=== PATIENT | female | born 1945 | race Caucasian/White ===

== ENCOUNTER 2016-10-02 06:37 | Emergency (ER) | payer MEDICARE, MEDICAID ==
[2016-10-02 06:44] VITALS: O2SAT 100
[2016-10-02] MEDS ORDERED: DiphenhydrAMINE 50 mg/ml Inj IVP STA (07:40)
[2016-10-02] MEDS ORDERED: Sodium Chloride 0.9% 1,000 ML IV STA (07:40)
--- NOTE | 2016-10-02 08:04 | ED PDOC ---
HPI: Skin/Bite Injury Time Seen by Provider: 10/02/16 07:23 Chief Complaint (Nursing): Abnormal Skin Integrity History Per: Patient History/Exam Limitations: no limitations Onset/Duration Of Symptoms: Days (x2 days) Current Symptoms Are (Timing): Still Present Additional Complaint(s): 71 y/o female presents to the emergency department with a complaint of an itchy red rash involving the face, arms, chest, torsol, back and legs of an unknown allergen x2 days. Denies shortness of breath, tightness of the throat. PMD: Dr. 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 - Family History Family History: States: Unknown Family Hx - Social History Current smoker - smoking cessation education provided: No Ex-Smoker (has not smoked in the last 12 months): No Alcohol: None Drugs: Denies - Home Medications Home Medications: Ambulatory Orders Medication Instructions Recorded Ascorbic Acid [Vitamin C] 500 mg PO DAILY 10/02/16 Aspirin [Ecotrin] 81 mg PO DAILY 10/02/16 Cetirizine HCl [Zyrtec] 10 mg PO DAILY #10 capsule 10/02/16 DiphenhydrAMINE [Benadryl] 25 mg PO Q6H PRN 10/02/16 Famotidine [Pepcid] 20 mg PO Q12 #20 tab 10/02/16 Hydrocortisone 0.5% [Cortizone 1 appl TOP PRN PRN 10/02/16 0.5%] Lactobacillus Rhamnosus GG 1 tab PO DAILY 10/02/16 [[facility]] Metoprolol Tartrate [Lopressor] 3 tab PO Q12H 10/02/16 Temazepam [Restoril] 15 mg PO HS 10/02/16 Valsartan [Diovan] 40 mg PO DAILY 10/02/16 predniSONE [predniSONE Tab] 10 mg PO TID #15 tab 10/02/16 - Allergies Allergies/Adverse Reactions: Allergies Allergy/AdvReac Type Severity Reaction Status Date / Time iodine Allergy RASH Verified 10/02/16 06:41 Review of Systems ROS Statement: Except As Marked, All Systems Reviewed And Found Negative ENT: Negative for: Other (Tightness of the throat) Respiratory: Negative for: Shortness of Breath Skin: Positive for: Rash (Itchy red rash involving face, arms, chest, torsol, back and legs) Physical Exam - Reviewed Nursing Documentation Reviewed: Yes Vital Signs Reviewed: Yes - Physical Exam Appears: Positive for: Well, Non-toxic, No Acute Distress Head Exam: Positive for: ATRAUMATIC, NORMOCEPHALIC Skin: Positive for: Warm, Dry, Rash (erythematous flat rash involving face, chest, back, arms and legs ) ENT: Positive for: Normal ENT Inspection. Negative for: Pharyngeal Erythema Neck: Positive for: Normal, Supple Cardiovascular/Chest: Positive for: Regular Rate, Rhythm. Negative for: Murmur Respiratory: Positive for: Normal Breath Sounds. Negative for: Accessory Muscle Use, Wheezing, Respiratory Distress Gastrointestinal/Abdominal: Positive for: Normal Exam, Soft, Other (fistula drainage scant serum fluid noted). Negative for: Tenderness Extremity: Positive for: Normal ROM. Negative for: Pedal Edema Neurologic/Psych: Positive for: Alert, Oriented - Laboratory Results Result Diagrams: 10/02/16 07:45 10/02/16 11:35 - ECG O2 Sat by Pulse Oximetry: 100 (RA) Pulse Ox Interpretation: Normal Medical Decision Making Medical Decision Making: Time: 7:23 Initial plan: --VBG Shock Panel --COMP Metabolic Panel --ED urine Dipstick (POC) Stat --CBC w/ differential --Benadryl 25 mg IVP --Pepcid 20 mg IVP --Methylprednisolone 125 mg IVP --Sodium chloride 1,000 mls IV 100 mls/hr --Blood Culture Stat --Revaluation Scribe Attestation: Documented by Grace Lopez, acting as a scribe for Andrae Sherman MD. Provider Scribe Attestation: All medical record entries made by the Scribe were at my direction and personally dictated by me. I have reviewed the chart and agree that the record accurately reflects my personal performance of the history, physical exam, medical decision making, and the department course for this patient. I have also personally directed, reviewed, and agree with the discharge instructions and disposition. Disposition - Clinical Impression Clinical Impression: Allergic reaction - Patient ED Disposition Is Patient to be Admitted: No Counseled Patient/Family Regarding: Studies Performed, Diagnosis, Need For Followup, Rx Given - Disposition Referrals: Johnny Hansen MD [Family Provider] - Disposition: Routine/Home Disposition Time: 13:30 Condition: FAIR Prescriptions: Cetirizine HCl [Zyrtec] 10 mg PO DAILY #10 capsule Famotidine [Pepcid] 20 mg PO Q12 #20 tab predniSONE [predniSONE Tab] 10 mg PO TID #15 tab Instructions: General Allergic Reaction (ED)
[2016-10-02 08:30] LABS: VENOUS BLOOD GAS BASE EXCESS -1.7 mmol/L (0.0-2.0); VENOUS BLOOD GAS PCO2 38 mmHg (40-60); VENOUS BLOOD PH 7.39 (7.32-7.43)
[2016-10-02 08:42] LABS: BASO % 0.2 % (0.0-2.0); EOS # 0.1 K/uL (0.0-0.7); EOS % 0.9 % (0.0-4.0); HEMATOCRIT 34.8 % (34.0-47.0); LYMPH # 2.3 K/uL (1.0-4.3); LYMPH % 18.8 % (20.0-40.0); MEAN CELL VOLUME 80.4 fl (81.0-99.0); MEAN CORPUSCULAR HEMOGLOBIN 26.5 pg (27.0-31.0); MEAN CORPUSCULAR HGB CONC 32.9 g/dL (33.0-37.0); MEAN PLATELET VOLUME 8.4 fl (7.2-11.7); MONO # 0.5 K/uL (0.0-0.8); MONO % 3.9 % (0.0-10.0); NEUT # 9.3 K/uL (1.8-7.0); NEUT % 76.2 % (50.0-75.0); NRBC % 0.1 % (0.0-0.0); RED CELL DISTRIBUTION WIDTH 14.6 % (11.5-14.5); WHITE BLOOD COUNT 12.2 K/uL (4.8-10.8)
[2016-10-02 08:48] LABS: ALB/GLOB RATIO 0.7 (1.0-2.1); BILIRUBIN,TOTAL 1.5 mg/dl (0.2-1.3); CALCIUM 9.1 mg/dL (8.4-10.2); TOTAL PROTEIN 8.6 G/DL (6.3-8.2)
[2016-10-02 09:04] LABS: POTASSIUM 6.4 MMOL/L (3.6-5.0)
[2016-10-02 11:46] LABS: VENOUS BLOOD GAS BASE EXCESS -3.5 mmol/L (0.0-2.0); VENOUS BLOOD GAS PCO2 41 mmHg (40-60); VENOUS BLOOD PH 7.34 (7.32-7.43)
[2016-10-02 12:10] LABS: POTASSIUM 4.9 MMOL/L (3.6-5.0)
[2016-10-02 12:13] LABS: CALCIUM 8.4 mg/dL (8.4-10.2)
--- NOTE | 2016-10-02 12:55 | CT ---
PROCEDURE: CT Abdomen and Pelvis without intravenous contrast HISTORY: r/o kidney stone COMPARISON: None. TECHNIQUE: Technique. Contrast Dose: Radiation dose: Total exam DLP = 779 mGy-cm. This CT exam was performed using one or more of the following dose reduction techniques: Automated exposure control, adjustment of the mA and/or kV according to patient size, and/or use of iterative reconstruction technique. FINDINGS: LOWER THORAX: Unremarkable. LIVER: Unremarkable. No gross lesion or ductal dilatation. GALLBLADDER AND BILE DUCTS: Cholecystectomy. PANCREAS: Unremarkable. No gross lesion or ductal dilatation. SPLEEN: Unremarkable. ADRENALS: Unremarkable. No mass. KIDNEYS AND URETERS: Unremarkable. No hydronephrosis. No solid mass. VASCULATURE: Unremarkable. No aortic aneurysm. BOWEL: Postsurgical changes along the anterior abdominal wall with evidence of previous bowel resection. No evidence of bowel obstruction. APPENDIX: Unremarkable. Normal appendix. PERITONEUM: Unremarkable. No free fluid. No free air. LYMPH NODES: Unremarkable. No enlarged lymph nodes. BLADDER: Unremarkable. REPRODUCTIVE: Unremarkable. BONES: No acute fracture. OTHER FINDINGS: None. IMPRESSION: Status post prior cholecystectomy and laparotomy with evidence of previous bowel resection. No evidence of bowel obstruction, phlegmon abscess. No evidence of urinary tract calculus or hydronephrosis.
[2016-10-02 13:59] VITALS: BP 132/76; PULSE 101; RESP 19; TEMP 98.5
== END 2016-10-02 14:00 | disposition home or self-care (01) ==
LOC: H.ER 06:37
DX: T78.40XA Allergy, unspecified, initial encounter (principal); I10 Essential (primary) hypertension; Z79.82 Long term (current) use of aspirin; Z87.891 Personal history of nicotine dependence; Z90.49 Acquired absence of other specified parts of digestive tract
CPT/HCPCS: 74176; 80048; 80053; 82803; 85025; 87040; 96374; 96375; 99282; J1200; J2930; J7040

== ENCOUNTER 2017-05-08 09:36 | Day surgery (SDC) | payer MEDICARE, MEDICAID ==
[2017-05-03 10:41] VITALS: BMI 35.0
[2017-05-08] MEDS ORDERED: Tetracaine 0.5% Ophth 2 ML BOTTLE ONE (10:16)
[2017-05-08] MEDS ORDERED: Acetylcholine 1% Opth System Pack IO ONE ×2 (10:16→14:15)
[2017-05-08] MEDS ORDERED: Maxitrol Opht Susp ONE (10:16)
[2017-05-08] MEDS ORDERED: Lidocaine 1% 20 MG/2 ML PF AMP ONE (10:17)
[2017-05-08] MEDS ORDERED: Pilocarpine 1% Opht Soln ONE (10:17)
[2017-05-08] MEDS ORDERED: CA CL/K CL/NA CL 500 ML IR ONE (10:17)
[2017-05-08] MEDS ORDERED: EPINEPHrine 1 mg/ml (1:1000) Inj ONE (10:17)
[2017-05-08] MEDS ORDERED: Povidone Iodine 5% Opht SOLUTION ONE (10:18)
[2017-05-08] MEDS ORDERED: BSS 15 ML 45 ML IR ONE (10:18)
[2017-05-08] MEDS ORDERED: Chondroitin/Hyaluronate Opth Syringe KIT (0.55 ml-0.5 ml) IO ONE ×2 (10:18→14:15)
[2017-05-08] MEDS ORDERED: Phenylephrine 2.5% Opht Soln OD ONE (10:55)
[2017-05-08] MEDS ORDERED: Flurbiprofen 0.3% Opht SOLN OD SCH (11:00)
[2017-05-08] MEDS ORDERED: Tropicamide 1% Opht 150 DROP/15 ML OD SCH (11:00)
[2017-05-08] MEDS ORDERED: Flurbiprofen 0.3% Opht SOLN OU ONE (11:43)
[2017-05-08] MEDS ORDERED: Tropicamide 1% Opht 150 DROP/15 ML OD ONE (11:43)
[2017-05-08] MEDS ORDERED: Lactated Ringer's 1,000 ML IV ONE (14:00)
[2017-05-08] MEDS ORDERED: Midazolam 2 MG/2 ML VIAL ONE (14:04)
[2017-05-08] MEDS ORDERED: Tetracaine 0.5% Ophth 2 ML BOTTLE OU ONE (14:12)
[2017-05-08] MEDS ORDERED: Pilocarpine 1% Opht Soln OD ONE (14:15)
[2017-05-08] MEDS ORDERED: Maxitrol Opht Susp OD ONE (14:15)
[2017-05-08] MEDS ORDERED: Lidocaine 1% 20 MG/2 ML PF AMP EP ONE (14:15)
[2017-05-08] MEDS ORDERED: EPINEPHrine 1 mg/ml (1:1000) Inj IV ONE (14:15)
[2017-05-08] MEDS ORDERED: Povidone Iodine 5% Opht SOLUTION OU ONE (14:15)
[2017-05-08 15:53] VITALS: BP 141/82; PULSE 91; RESP 18; TEMP 98; O2SAT 98
--- NOTE | 2017-05-10 11:11 | OP ---
PROCEDURE DATE : 05/08/2017 SURGEON: MIC HAAS MD ANESTHESIOLOGIST: MANDO HOPKINS MD ANESTHESIA: LOCAL / IV SEDATION PREOPERATIVE DIAGNOSIS: CATARACT RIGHT EYE. POSTOPERATIVE DIAGNOSIS: CATARACT RIGHT EYE. OPERATION: CLEAR CORNEAL PHACOEMULSIFICATION WITH LENS IMPLANT RIGHT EYE. PREPARATION AND PROCEDURE: After the patient was prepped and draped in the usual manner for sterile ophthalmic surgery, local IV sedation was administered ; eye seals were applied to the upper and lower lid margins and an adult wire lid speculum was placed within the lids. Under microsurgical control, a two- step clear corneal incision was made into the anterior chamber. The initial incision was perpendicular to the corneal plane. The second incision with the keratome was placed at a 45-degree angle to the first incision. One cc of one percent Xylocaine MPF was instilled into the anterior chamber to achieve proper intraocular anesthesia. At this time, the Viscoelastic was injected into the anterior chamber for protection of the endothelium and for maintenance of the chamber depth. A 360-degree continuous curvilinear capsulorrhexis was performed using a pre-bent 25-gauge needle. Hydrodissection and hydrodelineation were performed using a Fields cannula and balanced salt solution. Utilizing the tip of the Fields cannula, the nucleus was rotated freely within the capsular bag. A standard one-handed phacoemulsification was utilized at this time for sculpting and rotating of the nucleus. The nucleus was fragmented in its entirety and aspirated without any consequence. A standard I&A was carried out for the residual cortical material. No residual material was noted within the capsular bag. The posterior capsule was noted to be clear. Additional Viscoelastic was injected into the capsular bag in preparation for lens implantation. After this has been satisfactorily achieved the intraocular lens injected through the corneal incision into the capsular bag. The intraocular lens was manipulated until it was properly oriented and the Viscoelastic was evacuated from the capsular bag and anterior chamber. The anterior chamber was reformed with balanced salt solution. The corneal incision was irrigated with BSS. The intraocular pressure was found to be within normal limits. This terminated the procedure. The speculum and lid drapes were removed. TobraDex ophthalmic suspension and Pilocarpine 1% drops one drop was applied to the eye. POSTOPERATIVE CONDITION: The patient was brought to the Post anesthesia Recovery area with stable vital signs. DMIC DENISE MD
== END 2017-05-08 15:45 | disposition home or self-care (01) ==
LOC: H.OPSURG 09:36
PROVIDERS: ATTEND Ophthalmology
DX: H25.11 Age-related nuclear cataract, right eye (principal); M19.90 Unspecified osteoarthritis, unspecified site; I10 Essential (primary) hypertension; Z86.73 Personal history of transient ischemic attack (TIA), and cerebral infarction without residual deficits
CPT/HCPCS: 66984; J0171; J2250; J3010; J7120; V2632

== ENCOUNTER 2017-06-11 20:19 | Emergency (ER) | payer MEDICARE, MEDICAID ==
[2017-06-11 20:19] VITALS: BMI 35.0
[2017-06-11 20:27] VITALS: BP 104/58; PULSE 105; RESP 16; TEMP 99.8; O2SAT 95
--- NOTE | 2017-06-11 21:44 | ED PDOC ---
HPI: CCC, URI, Sore Throat Time Seen by Provider: 06/11/17 20:20 Chief Complaint (Nursing): Cough, Cold, Congestion Chief Complaint (Provider): Cough History Per: Patient History/Exam Limitations: no limitations Onset/Duration Of Symptoms: Days (several weeks) Current Symptoms Are (Timing): Still Present Associated Symptoms: Cough (productive), Sputum (yellow-green). denies: Fever, Vomiting Ear Symptoms: Bilateral: None Additional Complaint(s): Jeanne Garcia is a 72 year old female, with a past medical history of hypertension , who presents to the emergency department complaining of productive cough with yellow/green sputum onset for several weeks. Patient was seen by doctor a few days ago and gave her amoxicillin, cough and pain medication. She denies any fever or vomit. No further medical complaints. PMD: Johnny Hansen Past Medical History Reviewed: Historical Data, Nursing Documentation, Vital Signs Vital Signs: Last Vital Signs Temp 99.8 F H 06/11/17 20:23 Pulse 105 H 06/11/17 20:23 Resp 16 06/11/17 20:23 BP 104/58 L 06/11/17 20:23 Pulse Ox 95 06/13/17 04:08 - Medical History PMH: Arthritis, Gastritis, HTN, Rheumatoid Arthritis Denies: Chronic Kidney Disease - Surgical History Surgical History: Cholecystectomy, Hernia Repair (fistula) - Family History Family History: States: Unknown Family Hx - Social History Current smoker - smoking cessation education provided: No Alcohol: None Drugs: Denies - Home Medications Home Medications: Ambulatory Orders Medication Instructions Recorded Ascorbic Acid [Vitamin C] 500 mg PO DAILY 10/02/16 Aspirin [Ecotrin] 81 mg PO DAILY 10/02/16 Cetirizine HCl [Zyrtec] 10 mg PO DAILY #10 capsule 10/02/16 Famotidine [Pepcid] 20 mg PO Q12 #20 tab 10/02/16 Olopatadine 0.1% Opht [Patanol 5 1 drop OP BID #1 bottle 10/02/16 Ml] Temazepam [Restoril] 15 mg PO HS 10/02/16 Valsartan [Diovan] 40 mg PO DAILY 10/02/16 predniSONE [predniSONE Tab] 10 mg PO TID #15 tab 10/02/16 Amlodipine Besylate/Benazepril 1 cap PO DAILY 05/08/17 [Lotrel 5-10 mg Capsule] Cholecalciferol (Vitamin D3) 400 mg PO DAILY 05/08/17 [Vitamin D-400] Meclizine [Antivert] 25 mg PO DAILY 05/08/17 - Allergies Allergies/Adverse Reactions: Allergies Allergy/AdvReac Type Severity Reaction Status Date / Time iodine Allergy RASH Verified 10/02/16 06:41 Review of Systems ROS Statement: Except As Marked, All Systems Reviewed And Found Negative Constitutional: Negative for: Fever Respiratory: Positive for: Cough (productive), Sputum (green/yellow) Gastrointestinal: Negative for: Vomiting Physical Exam - Reviewed Nursing Documentation Reviewed: Yes Vital Signs Reviewed: Yes - Physical Exam Appears: Positive for: Well, Non-toxic, No Acute Distress Head Exam: Positive for: ATRAUMATIC, NORMAL INSPECTION, NORMOCEPHALIC Skin: Positive for: Normal Color, Warm, Dry Eye Exam: Positive for: Normal appearance ENT: Positive for: Normal ENT Inspection Neck: Positive for: Normal, Painless ROM, Supple Cardiovascular/Chest: Positive for: Regular Rate, Rhythm. Negative for: Murmur Respiratory: Positive for: Normal Breath Sounds. Negative for: Respiratory Distress Gastrointestinal/Abdominal: Positive for: Normal Exam, Soft. Negative for: Tenderness Back: Positive for: Normal Inspection. Negative for: L CVA Tenderness, R CVA Tenderness Extremity: Positive for: Normal ROM. Negative for: Pedal Edema, Deformity, Swelling Neurologic/Psych: Positive for: Alert, Oriented - ECG O2 Sat by Pulse Oximetry: 95 (RA) Pulse Ox Interpretation: Normal - Radiology X-Ray: Interpreted by Me, Viewed By Me X-Ray Interpretation: No Acute Disease Medical Decision Making Medical Decision Making: Initial Impression: Cough, rule out Flu and PNA Initial Plan: --Chest two views (PA/LAT) [RAD] --Albuterol 2.5 mg INH --Influenza A B --reevaluation Time: 00:22 On provider reevaluation, patient is feeling better and stable for discharge. xray and swabs negative Clinical Impression: Viral cough Chest X-Ray: FINDINGS: Lungs: Unremarkable. No consolidation. Pleural space: Unremarkable. No pneumothorax. Heart: Unremarkable. No cardiomegaly. Mediastinum: Unremarkable. Bones/joints: There are degenerative changes in the spine. IMPRESSION: No evidence of an acute cardiopulmonary abnormality. Scribe Attestation: Documented by Abraham Talbert & Aruna Spicer, acting as scribes for Dieudonne Hernandez MD Provider Scribe Attestation: All medical record entries made by the Scribe were at my direction and personally dictated by me. I have reviewed the chart and agree that the record accurately reflects my personal performance of the history, physical exam, medical decision making, and the department course for this patient. I have also personally directed, reviewed, and agree with the discharge instructions and disposition. Disposition - Clinical Impression Clinical Impression: Cough - Patient ED Disposition Is Patient to be Admitted: No Counseled Patient/Family Regarding: Studies Performed, Diagnosis, Need For Followup - Disposition Disposition: Routine/Home Disposition Time: 23:05 Condition: IMPROVED Additional Instructions: follow up with your primary doctor in 1-2 days return to the ED with any worsening or concerning symptoms Instructions: Acute Cough (ED) Forms: [employer] ([place])
[2017-06-11] MEDS ORDERED: Albuterol 0.083% Inhal Sol (2.5 mg/3 mL) UD ONE (22:09)
[2017-06-11] MEDS: Albuterol 0.083% Inhal Sol (2.5 mg/3 mL) UD INH ONE (22:10)
--- NOTE | 2017-06-12 00:58 | RAD ---
EXAM: XR Chest, 2 Views CLINICAL HISTORY: 72 years old, female; Signs and symptoms; Cough; Symptoms not specified TECHNIQUE: Frontal and lateral views of the chest. COMPARISON: CR - CHEST TWO VIEWS (PA/LAT) 2017-05-03 10:24 FINDINGS: Lungs: Unremarkable. No consolidation. Pleural space: Unremarkable. No pneumothorax. Heart: Unremarkable. No cardiomegaly. Mediastinum: Unremarkable. Bones/joints: There are degenerative changes in the spine. IMPRESSION: No evidence of an acute cardiopulmonary abnormality.
== END 2017-06-12 00:33 | disposition home or self-care (01) ==
LOC: H.ER 20:19
DX: R05 Cough (principal); I10 Essential (primary) hypertension; M06.9 Rheumatoid arthritis, unspecified; Z79.82 Long term (current) use of aspirin

== ENCOUNTER 2018-05-28 18:28 | Emergency (ER) | payer MEDICARE, MEDICAID ==
[2018-05-28 18:28] VITALS: BMI 35.0
[2018-05-28] MEDS ORDERED: Iohexol 240 (50 ml) PO ONE (20:30)
[2018-05-28] MEDS ORDERED: Sodium Chloride 0.9% 1,000 ML IV STA ×2 (20:31→22:38)
--- NOTE | 2018-05-28 20:51 | ED PDOC ---
HPI: Abdomen Time Seen by Provider: 05/28/18 18:50 Chief Complaint (Nursing): GI Problem Chief Complaint (Provider): GI Problem History Per: Patient, Family History/Exam Limitations: no limitations Onset/Duration Of Symptoms: Days Current Symptoms Are (Timing): Still Present Additional Complaint(s): 73 y/o female with a PMHx of HTN and Gastritis presents to the ED for evaluation of abdominal pain associated with 10+ episodes of vomiting. the pain has been going on for a few days, the vomiting since tonight. Patient reports her last bowel movement was last night. Denies fever. PMD: Johnny Hansen Past Medical History Reviewed: Historical Data, Nursing Documentation, Vital Signs Vital Signs: Last Vital Signs Temp 99.4 F 05/28/18 18:56 Pulse 117 H 05/28/18 18:56 Resp 20 05/28/18 18:56 BP 120/65 05/28/18 18:56 Pulse Ox 98 05/28/18 18:56 - Medical History PMH: Arthritis, Gastritis, HTN, Rheumatoid Arthritis Denies: Chronic Kidney Disease - Surgical History Surgical History: Cholecystectomy, Hernia Repair (fistula) - Family History Family History: States: Unknown Family Hx - Social History Current smoker - smoking cessation education provided: No Alcohol: None Drugs: Denies - Home Medications Home Medications: Ambulatory Orders Medication Instructions Recorded Ascorbic Acid [Vitamin C] 500 mg PO DAILY 10/02/16 Aspirin [Ecotrin] 81 mg PO DAILY 10/02/16 Cetirizine HCl [Zyrtec] 10 mg PO DAILY #10 capsule 10/02/16 Famotidine [Pepcid] 20 mg PO Q12 #20 tab 10/02/16 Olopatadine 0.1% Opht [Patanol 5 1 drop OP BID #1 bottle 10/02/16 Ml] RX: predniSONE [predniSONE Tab] 10 mg PO TID #15 tab 10/02/16 Temazepam [Restoril] 15 mg PO HS 10/02/16 Valsartan [Diovan] 40 mg PO DAILY 10/02/16 Amlodipine Besylate/Benazepril 1 cap PO DAILY 05/08/17 [Lotrel 5-10 mg Capsule] Cholecalciferol (Vitamin D3) 400 mg PO DAILY 05/08/17 [Vitamin D-400] Meclizine [Antivert] 25 mg PO DAILY 05/08/17 - Allergies Allergies/Adverse Reactions: Allergies Allergy/AdvReac Type Severity Reaction Status Date / Time iodine Allergy RASH Verified 05/28/18 18:55 Review of Systems ROS Statement: Except As Marked, All Systems Reviewed And Found Negative Constitutional: Negative for: Fever Gastrointestinal: Positive for: Vomiting, Abdominal Pain Physical Exam - Reviewed Nursing Documentation Reviewed: Yes Vital Signs Reviewed: Yes - Physical Exam Appears: Positive for: No Acute Distress Head Exam: Positive for: ATRAUMATIC, NORMAL INSPECTION, NORMOCEPHALIC Skin: Positive for: Normal Color Eye Exam: Positive for: Normal appearance ENT: Positive for: Normal ENT Inspection Neck: Positive for: Supple Cardiovascular/Chest: Positive for: Regular Rate, Rhythm Respiratory: Positive for: Normal Breath Sounds Gastrointestinal/Abdominal: Positive for: Bowel Sounds, Soft, Tenderness (Diffuse tenderness, mostly in periumbilical area), Other (Scars noted to the periumbilical area. that is the area where pt has pain.). Negative for: Mass, Distended, Guarding, Rebound, Hernia, Asicites Back: Positive for: Normal Inspection Extremity: Positive for: Normal ROM. Negative for: Pedal Edema Neurologic/Psych: Positive for: Alert, Oriented. Negative for: Motor/Sensory Deficits - Laboratory Results Result Diagrams: 05/28/18 21:00 05/28/18 21:00 - ECG O2 Sat by Pulse Oximetry: 98 (RA) Pulse Ox Interpretation: Normal Medical Decision Making Medical Decision Making: Impression: Abdominal pain and vomiting, r/o small bowel obstruction Plan: -- CT Abd/Pelvis PO Contrast ONLY -- CMP -- CBC with Differentials -- Morphine 3 mg IV -- Sodium Chloride IV 999 mls/hr -- Iohexol 50 ml PO -- Pepcid 20 mg IVP -- Zofran Inj 4 mg IV -- Urine C&S -- Urinalysis 2317 Provider informed by radiologist that patient has a pneumoperitoneum. IV Antibiotics ordered. Patient is septic but does not meet code sepsis criteria as her blood pressure is stable, and lactate is under 4. 2320 Results discussed with patient's son, who is at bedside and states the patient has a surgeon in [facility] named Dr. Katz, who had done an abdominal procedure on her due to a colonic fistula and a perforation. Case discussed with Dr. Soler, surgeon distribution lead, who is aware of patient. Surgery resident paged. [id number] Surgery resident aware, will come evaluate patient at bedside. 2346 CT Abdomen/Pelvis Findings Lower thorax: There is evidence pneumomediastinum and pneumopericardium. Chronic lung changes are noted in both lower lobes. Liver: Unremarkable. No gross lesion or ductal dilatation. Gallbladder and bile ducts: Status post cholecystectomy. Pancreas: Unremarkable. No gross lesion or ductal dilatation. Spleen: Unremarkable. Adrenals: Unremarkable. No mass. Kidneys and ureters: Unremarkable. No hydronephrosis. No solid mass. Vasculature: Unremarkable. No aortic aneurysm. Bowel: There is large amount of free intraperitoneal air present especially in the left lower quadrant. There is inflammatory stranding noted in the left lower quadrant. This may represent perforation of the distal descending colon. Post- surgical changes are present in the left lower quadrant. Clinical correlation is recommended. There is moderate amount of fecal material seen throughout the colon compatible with constipation. Appendix: Normal appendix. Peritoneum: Unremarkable. No free fluid. No free air. Lymph nodes: Unremarkable. No enlarged lymph nodes. Bladder: Unremarkable. Reproductive: Uterus and ovaries are atrophic. Bones: No acute fracture. Other Findings: None. Impression: Evidence of large amount of free intraperitoneal air as well as pneu momediastinum and pneumopericardium. This is consistent with viscus perforation, possibly descending colon. There is marked inflammatory stranding noted in the left lower quadrant and evidence of prior surgery in the vicinity. 0010 results immediately communicated to ghazala and to her son at bedside. called surgeon distribution lead Dr Soler to inform her of results. she also said to call surgery resident as well. Patient's son is requesting a "second opinion" and patient along with her son wishes to leave this ER to get evaluated at [facility]. they said that the doctor at [facility] (trauma surgeon Dr Linda) had saved the patients life in 2016 when the pt had a problematic infected mesh for hernia placed at [facility] which then had to be fixed by Dr linda.) Patient refusing bailey catheter, NG tube, and blood cultures. she agreed to iv abx. Multiple attempts made by provider, and registered nurse surgical services to discuss the guarded situation of the patient and that patient is not stable for discharge home/transfer to another hospital at this time. that their best option is to stay here for stabilization, admission to icu and surgery in a few hours. Patient expresses understanding of her critical condition but still wishes to leave AMA. [address] Linda (patient's prior surgeon), who states he will let his team (Dr. Hooper and Dr. Naranjo) at [facility] know of patient's plan to come in. Pt states she wants to leave, sign papers for AMA and they will go directly to [facility] ER without fail. Provider to call [facility] ER as well to inform them of patient's arrival. gave pt copy of CD of the CT scan. This patient is choosing to leave against medical advice. The provider and registered nurse surgical services have personally explained to the patient that choosing to do so may result in permanent bodily harm or . The provider discussed at great length that without further evaluation and mon itoring there may be unforeseen circumstances and/or deterioration causing permanent bodily harm (INCREASED MORBIDITY from SEPTIC SHOCK) or as a result of their choice. The patient verbalized these risks back to the physician in laymans terms. The patient is alert, oriented, and shows the mental capacity to make clear decisions regarding her health care at this time. The patient continues to wish to leave against medical advice. nozzle operator ( Karen: [phone] #[id number] ) used to ensure understanding. pt has full capacity to make decision. she is awake, alert and oriented X3. 0058 Provider called [facility] ER and attending distribution lead aware. Pt and son appreciative for our help. Scribe Attestation: Documented by Lucia Sharpe, acting as a scribe for Dieudonne Hernandez MD Provider Scribe Attestation: All medical record entries made by the Scribe were at my direction and personally dictated by me. I have reviewed the chart and agree that the record accurately reflects my personal performance of the history, physical exam, medical decision making, and the department course for this patient. I have also personally directed, reviewed, and agree with the discharge instructions and disposition. Disposition - Clinical Impression Clinical Impression: Pneumoperitoneum, Pneumopericardium, Left against medical advice - Patient ED Disposition Is Patient to be Admitted: No - Disposition Disposition: Against Medical Advice Disposition Time: 00:30 Condition: CRITICAL Additional Instructions: OU EST FIRMANDO EN CONTRA DEL ASESORAMIENTO MDICO LE RECOMENDAMOS ESTAR EN [facility] Le sugerimos que vaya a la estiven de emergencias en [facility], donde est la Dra. Katz, y reciba tratamiento all. [facility] ED si desea obtener tratamiento para posadas grave problema aqu Instructions: Leaving Against Medical Advice Forms: [facility] (Iraqi), [employer] (Vietnamese) Print Language: MEXICAN
[2018-05-28 21:06] LABS: BASO % 0.1 % (0.0-2.0); LYMPH # 2.2 K/uL (1.0-4.3); LYMPH % 8.3 % (20.0-40.0); MEAN CELL VOLUME 82.3 fl (81.0-99.0); MEAN CORPUSCULAR HEMOGLOBIN 25.9 pg (27.0-31.0); MEAN CORPUSCULAR HGB CONC 31.5 g/dL (33.0-37.0); MEAN PLATELET VOLUME 8.1 fl (7.2-11.7); MONO # 1.8 K/uL (0.0-0.8); MONO % 6.7 % (0.0-10.0); NEUT # 22.5 K/uL (1.8-7.0); NEUT % 84.9 % (50.0-75.0); PLATELET COUNT 302 K/uL (130-400); RBC 4.26 Mil/uL (3.80-5.20); RED CELL DISTRIBUTION WIDTH 14.8 % (11.5-14.5); WHITE BLOOD COUNT 26.5 K/uL (4.8-10.8)
[2018-05-28] MEDS ORDERED: Iohexol 240 (50 ml) ONE (21:07)
[2018-05-28] MEDS ORDERED: Morphine 4 MG/ML VIAL ONE ×2 (21:07→23:38)
[2018-05-28 21:15] LABS: ALB/GLOB RATIO 1.2 (1.0-2.1); ALBUMIN 4.3 g/dL (3.5-5.0); ALT/SGPT 36 U/L (9-52); AST/SGOT 36 U/L (14-36); BLOOD UREA NITROGEN 21 mg/dl (7-17); CALCIUM 9.4 mg/dL (8.4-10.2); GFR NON-AFRICAN AMERICAN > 60
[2018-05-28 21:28] LABS: SQUAMOUS EPITHIAL 1 /hpf (0-5); URINE BILIRUBIN NEGATIVE (NEGATIVE); URINE BLOOD NEGATIVE (NEGATIVE); URINE CLARITY SLIGHTY-CLOUDY (Clear); URINE COLOR YELLOW (YELLOW); URINE GLUCOSE (UA) NEG (NEGATIVE); URINE HYALINE CAST >20 /hpf (0-2); URINE LEUKOCYTE ESTERASE TRACE Leu/uL (Negative); URINE PROTEIN 30 mg/dL (NEGATIVE); URINE UROBILINOGEN 0.2-1.0 mg/dL (0.2-1.0)
[2018-05-28 22:09] LABS: ANISOCYTOSIS SLIGHT; BANDS 4 % (0-2); LYMPHOCYTE 11 % (20-50); MONOCYTE 5 % (0-10); MYELOCYTE 1 % (0-0); NEUTROPHIL 79 % (42-75); OVALOCYTES SLIGHT; PLATELET ESTIMATE NORMAL (NORMAL); TOTAL CELLS COUNTED 100
[2018-05-28 22:17] LABS: VENOUS BLOOD GAS BASE EXCESS -2.4 mmol/L (0.0-2.0); VENOUS BLOOD GAS PCO2 45 mmHg (40-60); VENOUS BLOOD GAS PO2 25 mm/Hg (30-55); VENOUS BLOOD PH 7.33 (7.32-7.43)
[2018-05-28] MEDS ORDERED: Piperacillin/Tazobact 4.5 GM in Sodium Chloride 0.9% 100 ML IVPB STA (23:16)
[2018-05-28 23:58] VITALS: RESP 18; TEMP 100.2
[2018-05-29 00:45] VITALS: BP 113/58; PULSE 108; O2SAT 98
--- NOTE | 2018-05-29 00:56 | CP.PCM.CON ---
History of Present Illness - History of Present Illness History of Present Illness: General Surgery Consult Note for Dr. Soler Consult: Free Air HPI: 73 year old female, past medical history significant for Hypertension and past surgical history significant for 4 hernia repairs w/ mesh, left sided colon resection (), and fistula takedown (), presents to the [facility] ED with sudden onset abdominal pain, nausea, and 4-5 episodes of NBNB vomiting. Patient states symptoms began suddenly yesterday. Unable to tolerate anything by mouth. Nothing alleviates or aggravates her symptoms. Denies fever, chills, diarrhea, shortness of breath, chest pain, headaches, dizziness, or urinary symptoms. PMH: See above PSH: 4 ventral hernia repairs, left sided colon resection w/ colostomy s/p reversal (), fistula takedown () FH: Noncontributory SH: Denies tobacco, alcohol, drugs ALL: Iodine Meds: See MAR Review of Systems - Constitutional Constitutional: absent: Chills, Fever, Weakness - EENT Eyes: absent: Blurred Vision, Change in Vision Nose/Mouth/Throat: absent: Nasal Congestion, Nasal Discharge - Cardiovascular Cardiovascular: absent: Chest Pain, Dyspnea - Respiratory Respiratory: absent: Cough, Dyspnea, Hemoptysis - Gastrointestinal Gastrointestinal: Abdominal Pain, Nausea, Vomiting. absent: Diarrhea - Genitourinary Genitourinary: absent: Difficulty Urinating, Dysuria - Musculoskeletal Musculoskeletal: absent: Back Pain, Neck Pain - Integumentary Integumentary: absent: Bleeding Lesions, Changing Lesions - Neurological Neurological: absent: Confusion, Dizziness - Psychiatric Psychiatric: absent: Anxiety, Depression Past Patient History - Past Medical History & Family History Past Medical History?: Yes - Past Social History Smoking Status: Never Smoked - CARDIAC Hx Hypertension: Yes - PULMONARY Hx Respiratory Disorders: No - NEUROLOGICAL Hx Neurological Disorder: Yes Other/Comment: STROKE 2013 - HEENT Hx HEENT Problems: Yes Hx Cataracts: Yes - RENAL Hx Chronic Kidney Disease: No - ENDOCRINE/METABOLIC Hx Endocrine Disorders: No - HEMATOLOGICAL/ONCOLOGICAL Hx Blood Disorders: No - INTEGUMENTARY Hx Dermatological Problems: No - MUSCULOSKELETAL/RHEUMATOLOGICAL Hx Arthritis: Yes Hx Rheumatoid Arthritis: Yes - GASTROINTESTINAL Hx Gastritis: Yes - GENITOURINARY/GYNECOLOGICAL Hx Genitourinary Disorders: No - PSYCHIATRIC Hx Psychophysiologic Disorder: No Hx Substance Use: No - SURGICAL HISTORY Hx Cholecystectomy: Yes - ANESTHESIA Hx Anesthesia: Yes Hx Anesthesia Reactions: No Hx Malignant Hyperthermia: No Meds Allergies/Adverse Reactions: Allergies Allergy/AdvReac Type Severity Reaction Status Date / Time iodine Allergy RASH Verified 05/28/18 18:55 Physical Exam - Constitutional Appears: Non-toxic, No Acute Distress - Head Exam Head Exam: ATRAUMATIC, NORMAL INSPECTION, NORMOCEPHALIC - Eye Exam Eye Exam: EOMI - ENT Exam ENT Exam: Mucous Membranes Moist - Respiratory Exam Respiratory Exam: NORMAL BREATHING PATTERN. absent: Respiratory Distress - Cardiovascular Exam Cardiovascular Exam: Tachycardia, REGULAR RHYTHM - GI/Abdominal Exam GI & Abdominal Exam: Normal Bowel Sounds, Soft, Tenderness. absent: Distended, Guarding, Rebound - Neurological Exam Neurological exam: Alert, Oriented x3 - Psychiatric Exam Psychiatric exam: Normal Affect, Normal Mood - Skin Skin Exam: Dry, Intact, Normal Color, Warm Results - Vital Signs Recent Vital Signs: Last Vital Signs Temp 100.2 F H 05/29/18 00:44 Pulse 108 H 05/29/18 00:44 Resp 18 05/29/18 00:44 BP 113/58 L 05/29/18 00:44 Pulse Ox 98 05/29/18 00:45 - Labs Result Diagrams: 05/28/18 21:00 05/28/18 21:00 Labs: Laboratory Results - last 24 hr 05/28/18 05/28/18 05/28/18 21:00 21:00 21:00 WBC 26.5 H D RBC 4.26 Hgb 11.0 L Hct 35.1 MCV 82.3 MCH 25.9 L MCHC 31.5 L RDW 14.8 H Plt Count 302 MPV 8.1 Neut % (Auto) 84.9 H Lymph % (Auto) 8.[address] % (Auto) 6.7 Eos % (Auto) 0.0 Baso % (Auto) 0.1 Neut # (Auto) 22.5 H Lymph # (Auto) 2.2 [place] # (Auto) 1.8 H Eos # (Auto) 0.0 Baso # (Auto) 0.0 Neutrophils % (Manual) 79 H Band Neutrophils % 4 H Lymphocytes % (Manual) 11 L Monocytes % (Manual) 5 Myelocytes % 1 H Platelet Estimate Normal Anisocytosis (manual) Slight Ovalocytes Slight pO2 VBG pH VBG pCO2 VBG HCO3 VBG Total CO2 VBG O2 Sat (Calc) VBG Base Excess VBG Potassium Glucose Lactate FiO2 Sodium 142 Potassium 4.5 Chloride 106 Carbon Dioxide 23 Anion Gap 18 BUN 21 H Creatinine 0.9 Est GFR ( Amer) > 60 Est GFR (Non-Af Amer) > 60 Random Glucose 132 H Calcium 9.4 Total Bilirubin 0.5 AST 36 ALT 36 Alkaline Phosphatase 80 Total Protein 7.8 Albumin 4.3 Globulin 3.5 Albumin/Globulin Ratio 1.2 Venous Blood Potassium Urine Color Yellow Urine Clarity Slighty-cloudy Urine pH 5.0 Ur Specific [place] 1.019 Urine Protein 30 Urine Glucose (UA) Neg Urine Ketones Negative Urine Blood Negative Urine Nitrate Negative Urine Bilirubin Negative Urine Urobilinogen 0.2-1.0 Ur Leukocyte Esterase Trace Urine Microscopic WBC 5 Ur Squamous Epith Cells 1 Hyaline Casts >20 H 05/28/18 22:13 WBC RBC Hgb Hct MCV MCH MCHC RDW Plt Count MPV Neut % (Auto) Lymph % (Auto) [place] % (Auto) Eos % (Auto) Baso % (Auto) Neut # (Auto) Lymph # (Auto) [place] # (Auto) Eos # (Auto) Baso # (Auto) Neutrophils % (Manual) Band Neutrophils % Lymphocytes % (Manual) Monocytes % (Manual) Myelocytes % Platelet Estimate Anisocytosis (manual) Ovalocytes pO2 25 L VBG pH 7.33 VBG pCO2 45 VBG HCO3 21.5 VBG Total CO2 25.1 VBG O2 Sat (Calc) 45.4 VBG Base Excess -2.4 L VBG Potassium 4.1 Glucose 126 H Lactate 3.2 H FiO2 21.0 Sodium 139.0 Potassium Chloride 109.0 H Carbon Dioxide Anion Gap BUN Creatinine Est GFR ( Amer) Est GFR (Non-Af Amer) Random Glucose Calcium Total Bilirubin AST ALT Alkaline Phosphatase Total Protein Albumin Globulin Albumin/Globulin Ratio Venous Blood Potassium 4.1 Urine Color Urine Clarity Urine pH Ur Specific [place] Urine Protein Urine Glucose (UA) Urine Ketones Urine Blood Urine Nitrate Urine Bilirubin Urine Urobilinogen Ur Leukocyte Esterase Urine Microscopic WBC Ur Squamous Epith Cells Hyaline Casts Assessment & Plan - Assessment and Plan (Free Text) Assessment: 73F w/ nausea, vomiting, abdominal pain since yesterday CT evidence of pneumoperitoneum w/ viscous perforation possible on the left side, pneumomediastinum, pneumopericardium Plan: NPO IVF - needs adequate resuscitation IV Abx - empiric coverage Antiemetics and analgesics PRN NGT AM labs Recommend ICU consult secondary to sepsis Patient will need operative intervention D/w Dr. Ryder Hurst PGY1 Dispo: Spoke with patient at length, with Emergency Medicine Physician as well, about gravity of situation and need for emergent surgery secondary to her medical condition. Patient and son, who is at bedside, is refusing all treatment at [facility] stating they would like a second opinion from Dr. Mirza who "saved patient's life" in the past. Patient and son do not want any intervention and would like to sign out against medical advice. ED physician spoke with Dr. Canyd omalley at [facility] [place] [place] who is willing to take patient under his service at [facility] [place]. ED physician at [facility] [place] [place] also called and made aware that patient will be coming to their ED for further treatment. Patient has signed out AMA.
--- NOTE | 2018-05-29 12:54 | CT ---
Date of service: 05/28/2018 PROCEDURE: CT Abdomen and Pelvis with contrast HISTORY: abd pain vomiting rule out obstruction COMPARISON: 10/02/2016 CT abdomen and pelvis TECHNIQUE: Contrast dose: No IV contrast was administered. Oral contrast was administered. Radiation dose: Total exam DLP = 593.38 mGy-cm. This CT exam was performed using one or more of the following dose reduction techniques: Automated exposure control, adjustment of the mA and/or kV according to patient size, and/or use of iterative reconstruction technique. FINDINGS: LOWER THORAX: Surrounding the aorta distal esophagus and heart, an interval pneumomediastinum is noted. LIVER: Limited exam without IV contrast. No gross lesion or ductal dilatation. GALLBLADDER AND BILE DUCTS: Clips in gallbladder fossa-cholecystectomy status suggested. Other status. PANCREAS: Unremarkable. No gross lesion or ductal dilatation. SPLEEN: Unremarkable. ADRENALS: Unremarkable. No mass. KIDNEYS AND URETERS: Unremarkable. No hydronephrosis. No solid mass. VASCULATURE: No aortic aneurysm. There is presence of aortic atherosclerotic calcification and mural plaque on cross sectional studies. BOWEL: Multiple surgical changes around the left colon-inferred as partial left resection here. Mostly small bowel and probably trace partial large bowel adherence to the left anterior abdominal wall suggested. A prior reversed left colostomy change here is in part likely explant mert as well as a more extensive anterior small-bowel soft tissue adhesion presence.. No current colostomy apparent. There are multiple fairly central dilated small bowel loops with oral contrast within them which extends and/or passes distally bowl on beyond this into other more distal small bowel loops and colonic loops. A high-grade partial small-bowel obstruction perhaps in multiple sites lesions most notable around the anterior abdominal wall bordering multiple surgical clips is suspect. A high-grade partial small-bowel obstruction was conveyed to the ISABELA Newman on 05/29/2018 at approximately 12 15 pm the patient apparently had signed out AMA the day before Multiple anterior abdominal wall deformities and linear more bulky soft tissue asymmetries here are present paddle with adhesions and postsurgical changes. Prior abdominal hernia repairs are also compatible with this currently no bowel containing herniation is noted. APPENDIX: Short segments of the appendix are bleed identified and appear normal. PERITONEUM: There intraperitoneal free and likely left retroperitoneal free air apparent in this patient with multiple surgical changes around the left colon-inferred as partial resection here. There also mostly small bowel and probably partial large bowel adherence to the left anterior abdominal wall suggested. Prior reversed left colostomy here is 1 consideration. No current colostomy apparent Most of the intraperitoneal and/or retroperitoneal free air appears surrounding the kidney and left colon and a left colonic perforation here is possible. No prior free air here noted on the prior study. LYMPH NODES: No enlarged lymph nodes. BLADDER: Unremarkable. REPRODUCTIVE: Unremarkable. BONES: Inferior lumbar spine facet arthrosis with inferred degenerative ligamentous laxity noted.. Minimal associated stepladder like malalignment noted. OTHER FINDINGS: None. IMPRESSION: Extensive postsurgical changes in the abdomen for which clinical correlation is essential. Surgical changes are believed in part related to partial left colon resection and anterior abdominal wall hernia repairs. Currently no bowel containing hernia is noted. Interval extensive free retroperitoneal and intraperitoneal air noted. Pneumomediastinum also evident at lung bases. Given the regional prominence of the gas possibility of a left colon perforation also is a consideration. No gross abscess seen-however no IV contrast was administered either.. Multiple small bowel loops distended with anterior abdominal wall [id number] partial small bowel obstructions associated with adhesions are suspect. No complete obstruction appreciated at this time. Other findings as above. Comments: The high-grade small-bowel obstruction concerns were not mentioned on the initial [facility] preliminary report. This and the other findings above were called in to the PA Yosef Newman on 05/29/2018 at approximately 12 15 pm the patient apparently had signed out AMA the day before. Follow-up as is possible is advised Comments: Study marked for PA review .
== END 2018-05-29 00:50 | disposition left against medical advice (07) ==
LOC: H.ER 18:28
DX: K29.70 Gastritis, unspecified, without bleeding (principal)
CPT/HCPCS: 74176; 80053; 81003; 82803; 85025; 87040; 87086; 96361; 96365; 96375; 96376; 99285; J2270; J2405; J2543; J7030; Q9966